=== PATIENT | female | born 1950 | race Caucasian/White ===

== ENCOUNTER → 2020-02-19 | Outpatient (CLI) | payer MEDICARE | LOC: EXRD 10:59 | DX: M81.0 Age-related osteoporosis without current pathological fracture (principal); M85.852 Other specified disorders of bone density and structure, left thigh | CPT/HCPCS: 77080 ==

== ENCOUNTER → 2021-10-21 | Outpatient (CLI) | payer MEDICARE | LOC: KOH-I 14:45 | DX: N18.9 Chronic kidney disease, unspecified (principal) | CPT/HCPCS: 76775 ==